=== PATIENT | male | born 1985 | race African-American/Black ===

== ENCOUNTER 2018-05-30 08:02 | Emergency (ER) | payer OTHER ==
[~2018-05-30] VITALS: Ht 182.9 cm; Wt 140.0 kg
[~2018-05-30 08:02] MED LIST: ADDERALL XR20 MG PO; ADDERALL20 MG PO; AMLODIPINE BESY10 MG PO; CELEXA20 MG PO; CIPROFLOXACN500 MG PO; CITALOPRAM40 MG PO; GABAPENTIN300 MG PO; PRILOSEC20 MG PO; RISPERIDONE2 MG PO
[2018-05-30 09:24] LABS: HEMATOCRIT 41.9 % (39.0-50.0); HEMOGLOBIN 13.6 g/dl (14.0-18.0); IMMATURE GRANULOCYTES 0.8 % (0.0-5.0); MEAN CELL VOLUME 84.8 fL CALC (80.0-100.0); MEAN CORPUSCULAR HGB 27.5 pG CALC (26.0-32.0); MEAN CORPUSCULAR HGB CONC 32.5 g/L CALC (32.0-36.0); NEUT# 13.2 thou/uL (1.82-7.42); RED BLOOD COUNT 4.94 mill/uL (4.70-6.10); RED CELL DISTRI WIDTH 14.3 % (11.5-15.5)
[2018-05-30 09:32] LABS: ALBUMIN 4.6 g/dL (3.2-5.0); ALKALINE PHOSPHATASE 56 u/l (38-126); ANION GAP 17 (6-22 (CALC)); BILIRUBIN, TOTAL 0.9 mg/dL (0.0-1.4); BUN 13 mg/dL (9-20); BUN/CREATININE RATIO 11 (12-20 (CALC)); CARBON DIOXIDE 23 mmol/l (22-30); CHLORIDE 102 mmol/l (95-108); CREATININE 1.2 mg/dL (0.7-1.3); GFR > 60 ML/MIN (>=60 (CALC)); GFR FOR AFR.AMER. > 60 ML/MIN (>=60 (CALC)); MAGNESIUM 2.1 mg/dL (1.6-2.3); POTASSIUM 3.8 mmol/l (3.5-5.1); SGOT/AST 36 u/l (17-59); SODIUM 138 mmol/l (137-146); TOTAL PROTEIN 7.8 g/dL (6.3-8.2)
[2018-05-30 09:33] LABS: ETHYL ALCOHOL 0 mg/dl (0-30)
[2018-05-30 10:15] LABS: URINE BILIRUBIN - DIPSTICK NEGATIVE (NEGATIVE); URINE BLOOD DIPSTICK SMALL (NEGATIVE); URINE COLOR YELLOW; URINE GLUCOSE - DIPSTICK NEGATIVE (NEGATIVE); URINE KETONE NEGATIVE (NEGATIVE); URINE LEUK ESTERASE NEGATIVE (NEGATIVE); URINE NITRITE - DIPSTICK NEGATIVE (Negative); URINE PROTEIN - DIPSTICK NEGATIVE (NEG-TRACE); URINE UROBILINOGEN - DIPSTICK 0.2 E.U./dL (0.2)
[2018-05-30 10:16] LABS: URINE CLARITY CLEAR
[2018-05-30 10:19] LABS: BARBITURATES NEGATIVE (NEGATIVE); COCAINE POSITIVE (NEGATIVE); METHADONE NEGATIVE (NEGATIVE); TETRAHYDROCANNABIONOL POSITIVE (NEGATIVE); TRICYLIC ANTIDEPRESSANTS NEGATIVE (NEGATIVE)
[2018-05-30 10:20] LABS: OXCYCODONE NEGATIVE (NEGATIVE)
[2018-05-30 10:24] LABS: URINE RBC 0-2 RBC/hpf (0-5); URINE WBC 0-2 WBC/hpf (0-5)
[2018-05-30 10:41] VITALS: BP 141/73
== END 2018-05-30 10:55 | disposition home or self-care (01) ==
LOC: EDBD 08:02 → ED 08:02
PROVIDERS: Family Medicine
DX: F14.10 Cocaine abuse, uncomplicated (principal); F12.10 Cannabis abuse, uncomplicated; R00.0 Tachycardia, unspecified; F17.210 Nicotine dependence, cigarettes, uncomplicated; R45.1 Restlessness and agitation

== ENCOUNTER 2018-05-31 17:57 | Emergency (ER) | payer OTHER ==
[~2018-05-31] VITALS: Ht 182.9 cm; Wt 150.0 kg
[2018-05-31 18:32] LABS: URINE BILIRUBIN - DIPSTICK NEGATIVE (NEGATIVE); URINE BLOOD DIPSTICK MODERATE (NEGATIVE); URINE COLOR YELLOW; URINE GLUCOSE - DIPSTICK NEGATIVE (NEGATIVE); URINE KETONE 15 mg/dL (NEGATIVE); URINE LEUK ESTERASE NEGATIVE (NEGATIVE); URINE NITRITE - DIPSTICK NEGATIVE (Negative); URINE PROTEIN - DIPSTICK 30 mg/dL (NEG-TRACE); URINE SPECIFIC GRAVITY >=1.030; URINE UROBILINOGEN - DIPSTICK 0.2 E.U./dL (0.2)
[2018-05-31 18:34] LABS: HEMATOCRIT 43.4 % (39.0-50.0); HEMOGLOBIN 13.6 g/dl (14.0-18.0); MEAN CELL VOLUME 88.6 fL CALC (80.0-100.0); MEAN CORPUSCULAR HGB 27.8 pG CALC (26.0-32.0); MEAN CORPUSCULAR HGB CONC 31.3 g/L CALC (32.0-36.0); NEUT# 11.02 thou/uL (1.82-7.42); RED BLOOD COUNT 4.9 mill/uL (4.70-6.10); RED CELL DISTRI WIDTH 14.3 % (11.5-15.5)
[2018-05-31 18:36] LABS: BARBITURATES NEGATIVE (NEGATIVE); COCAINE POSITIVE (NEGATIVE); METHADONE NEGATIVE (NEGATIVE); TETRAHYDROCANNABIONOL POSITIVE (NEGATIVE); TRICYLIC ANTIDEPRESSANTS NEGATIVE (NEGATIVE)
[2018-05-31 18:37] LABS: OXCYCODONE NEGATIVE (NEGATIVE)
[2018-05-31 18:42] LABS: ALBUMIN 4.7 g/dL (3.2-5.0); ALKALINE PHOSPHATASE 79 u/l (38-126); BILIRUBIN, TOTAL 0.5 mg/dL (0.0-1.4); BUN 21 mg/dL (9-20); CHLORIDE 104 mmol/l (95-108); SODIUM 143 mmol/l (137-146); TOTAL PROTEIN 7.9 g/dL (6.3-8.2)
[2018-05-31 18:43] LABS: URINE CLARITY CLEAR
[2018-05-31 18:48] LABS: IMMATURE GRANULOCYTES 17.6 % (0.0-5.0)
[2018-05-31 18:52] LABS: ANION GAP 31 (6-22 (CALC)); BUN/CREATININE RATIO 9 (12-20 (CALC)); CARBON DIOXIDE 13 mmol/l (22-30); CREATININE 2.4 mg/dL (0.7-1.3); ETHYL ALCOHOL 0 mg/dl (0-30); GFR 32 ML/MIN (>=60 (CALC)); GFR FOR AFR.AMER. 38 ML/MIN (>=60 (CALC)); POTASSIUM 5.2 mmol/l (3.5-5.1); SGOT/AST 109 u/l (17-59)
[2018-05-31 19:20] VITALS: BP 130/63
== END 2018-05-31 19:20 | disposition short-term general hospital (02) ==
LOC: ED 17:57
PROVIDERS: Emergency Medicine
DX: T40.5X1A Poisoning by cocaine, accidental (unintentional), initial encounter (principal); T40.7X1A Poisoning by cannabis (derivatives), accidental (unintentional), initial encounter; R41.82 Altered mental status, unspecified; R50.9 Fever, unspecified; J96.90 Respiratory failure, unspecified, unspecified whether with hypoxia or hypercapnia; R00.0 Tachycardia, unspecified; I10 Essential (primary) hypertension

== ENCOUNTER 2018-06-25 17:39 | Emergency (ER) | payer OTHER | END 2018-06-25 18:09 | disposition left against medical advice (07) | DRG 951 | LOC: ED 17:39 → LWOBS 18:09 | DX: Z91.19 Patient's noncompliance with other medical treatment and regimen (principal) ==

== ENCOUNTER 2018-06-28 15:55 | Emergency (ER) | payer OTHER ==
[~2018-06-28] VITALS: Ht 182.9 cm; Wt 145.0 kg
[2018-06-28 16:20] LABS: HEMATOCRIT 30.4 % (39.0-50.0); IMMATURE GRANULOCYTES 0.4 % (0.0-5.0); MEAN CELL VOLUME 90.2 fL CALC (80.0-100.0); MEAN CORPUSCULAR HGB 29.7 pG CALC (26.0-32.0); MEAN CORPUSCULAR HGB CONC 32.9 g/L CALC (32.0-36.0); NEUT# 6.44 thou/uL (1.82-7.42); RED BLOOD COUNT 3.37 mill/uL (4.70-6.10); RED CELL DISTRI WIDTH 15.6 % (11.5-15.5)
[2018-06-28 16:35] LABS: ALBUMIN 4.2 g/dL (3.2-5.0); BILIRUBIN, TOTAL 1.5 mg/dL (0.0-1.4); CREATININE 2.8 mg/dL (0.7-1.3); TOTAL PROTEIN 7.9 g/dL (6.3-8.2)
[2018-06-28] MEDS ORDERED: OMEPRAZOLE20 MG PO (16:36)
[2018-06-28] MEDS ORDERED: ALLOPURINOL100 MG PO (16:36)
[2018-06-28] MEDS ORDERED: PHOSLO667 M1 PO (16:36)
[2018-06-28] MEDS ORDERED: ZOFRAN ODT4 MG PO (16:37)
[2018-06-28] MEDS ORDERED: METOPROL TAR25 MG PO (16:37)
[2018-06-28 16:39] LABS: POTASSIUM 3.7 mmol/l (3.5-5.1)
[2018-06-28 16:46] LABS: URINE BILIRUBIN - DIPSTICK NEGATIVE (NEGATIVE); URINE BLOOD DIPSTICK TRACE-INTACT (NEGATIVE); URINE COLOR YELLOW; URINE GLUCOSE - DIPSTICK NEGATIVE (NEGATIVE); URINE KETONE NEGATIVE (NEGATIVE); URINE LEUK ESTERASE TRACE (NEGATIVE); URINE NITRITE - DIPSTICK NEGATIVE (Negative); URINE PH 8.5 (4.5-8.0); URINE PROTEIN - DIPSTICK 30 mg/dL (NEG-TRACE); URINE SPECIFIC GRAVITY 1.015; URINE UROBILINOGEN - DIPSTICK 0.2 E.U./dL (0.2)
[2018-06-28 16:47] LABS: URINE CLARITY CLEAR
[2018-06-28 16:47] LABS: PROTHROMBIN TIME 10.5 SECONDS (9.0-12.5)
[2018-06-28 16:49] LABS: BARBITURATES NEGATIVE (NEGATIVE); COCAINE NEGATIVE (NEGATIVE); METHADONE NEGATIVE (NEGATIVE); OXCYCODONE NEGATIVE (NEGATIVE); TETRAHYDROCANNABIONOL NEGATIVE (NEGATIVE); TRICYLIC ANTIDEPRESSANTS NEGATIVE (NEGATIVE); URINE RBC 0-2 RBC/hpf (0-5)
[2018-06-28 16:55] VITALS: BP 119/80
[2018-06-28 17:04] LABS: DIGOXIN < 0.4 ng/mL (0.8-2.0)
[2018-06-28 17:17] LABS: MYOGLOBIN 541 ng/mL (0 - 121)
== END 2018-06-28 16:56 | disposition short-term general hospital (02) ==
LOC: ED 15:55
PROVIDERS: Family Medicine
DX: R07.9 Chest pain, unspecified (principal); R94.31 Abnormal electrocardiogram [ECG] [EKG]; I12.0 Hypertensive chronic kidney disease with stage 5 chronic kidney disease or end stage renal disease; N18.6 End stage renal disease; Z99.2 Dependence on renal dialysis; F17.200 Nicotine dependence, unspecified, uncomplicated; Z72.89 Other problems related to lifestyle

== ENCOUNTER 2018-12-14 10:45 | Emergency (ER) | payer OTHER ==
[~2018-12-14] VITALS: Ht 182.9 cm; Wt 119.0 kg
[~2018-12-14 10:45] MED LIST changes: +ALLOPURINOL100 MG PO; +METOPROL TAR25 MG PO; +OMEPRAZOLE20 MG PO; +PHOSLO667 M1 PO; +ZOFRAN ODT4 MG PO
[2018-12-14 11:18] LABS: IMMATURE GRANULOCYTES 0.5 % (0.0-5.0); MEAN CORPUSCULAR HGB 25.6 pG CALC (26.0-32.0); MEAN CORPUSCULAR HGB CONC 31.7 g/L CALC (32.0-36.0); NEUT# 5.65 thou/uL (1.82-7.42); RED BLOOD COUNT 5.16 mill/uL (4.70-6.10)
[2018-12-14 11:24] LABS: HEMATOCRIT 41.6 % (39.0-50.0); HEMOGLOBIN 13.2 g/dl (14.0-18.0); MEAN CELL VOLUME 80.6 fL CALC (80.0-100.0)
[2018-12-14 11:37] LABS: BUN 19 mg/dL (9-20); CHLORIDE 106 mmol/l (95-108); POTASSIUM 4.2 mmol/l (3.5-5.1); SODIUM 139 mmol/l (137-146)
[2018-12-14 11:39] LABS: ANION GAP 13 (6-22 (CALC)); BUN/CREATININE RATIO 17 (12-20 (CALC)); CARBON DIOXIDE 24 mmol/l (22-30); CREATININE 1.1 mg/dL (0.7-1.3); GFR > 60 ML/MIN (>=60 (CALC)); GFR FOR AFR.AMER. > 60 ML/MIN (>=60 (CALC))
[2018-12-14 14:53] VITALS: BP 111/64
== END 2018-12-14 15:50 | disposition short-term general hospital (02) ==
LOC: ED 10:45
PROVIDERS: Family Medicine
DX: I20.0 Unstable angina (principal); I10 Essential (primary) hypertension; F17.210 Nicotine dependence, cigarettes, uncomplicated; E66.9 Obesity, unspecified; F14.10 Cocaine abuse, uncomplicated
CPT/HCPCS: J1644

== ENCOUNTER 2019-05-06 18:19 | Emergency (ER) | payer OTHER ==
[~2019-05-06] VITALS: Ht 182.9 cm; Wt 110.5 kg
[2019-05-06 21:29] LABS: HEMATOCRIT 41.8 % (39.0-50.0); HEMOGLOBIN 13.4 g/dl (14.0-18.0); IMMATURE GRANULOCYTES 0.3 % (0.0-5.0); MEAN CELL VOLUME 85.3 fL CALC (80.0-100.0); MEAN CORPUSCULAR HGB 27.3 pG CALC (26.0-32.0); MEAN CORPUSCULAR HGB CONC 32.1 g/L CALC (32.0-36.0); NEUT# 4.59 thou/uL (1.82-7.42); RED BLOOD COUNT 4.9 mill/uL (4.70-6.10); URINE BILIRUBIN - DIPSTICK NEGATIVE (NEGATIVE); URINE BLOOD DIPSTICK NEGATIVE (NEGATIVE); URINE COLOR YELLOW; URINE GLUCOSE - DIPSTICK NEGATIVE (NEGATIVE); URINE KETONE NEGATIVE (NEGATIVE); URINE LEUK ESTERASE NEGATIVE (NEGATIVE); URINE NITRITE - DIPSTICK NEGATIVE (Negative); URINE PROTEIN - DIPSTICK NEGATIVE (NEG-TRACE); URINE SPECIFIC GRAVITY <=1.005; URINE UROBILINOGEN - DIPSTICK 0.2 E.U./dL (0.2)
[2019-05-06 21:31] LABS: BARBITURATES NEGATIVE (NEGATIVE); COCAINE NEGATIVE (NEGATIVE); METHADONE NEGATIVE (NEGATIVE); OXCYCODONE NEGATIVE (NEGATIVE); TETRAHYDROCANNABIONOL NEGATIVE (NEGATIVE); TRICYLIC ANTIDEPRESSANTS NEGATIVE (NEGATIVE)
[2019-05-06 21:40] LABS: ALBUMIN 4.3 g/dL (3.2-5.0); ALKALINE PHOSPHATASE 73 u/l (38-126); ANION GAP 13 (6-22 (CALC)); BILIRUBIN, TOTAL 0.4 mg/dL (0.0-1.4); BUN 14 mg/dL (9-20); BUN/CREATININE RATIO 13 (12-20 (CALC)); CARBON DIOXIDE 27 mmol/l (22-30); CHLORIDE 104 mmol/l (95-108); CREATININE 1.1 mg/dL (0.7-1.3); GFR > 60 ML/MIN (>=60 (CALC)); GFR FOR AFR.AMER. > 60 ML/MIN (>=60 (CALC)); POTASSIUM 4.3 mmol/l (3.5-5.1); SGOT/AST 18 u/l (17-59); SODIUM 139 mmol/l (137-146); TOTAL PROTEIN 6.9 g/dL (6.3-8.2)
[2019-05-06 21:50] LABS: MYOGLOBIN 36 ng/mL (0 - 121)
[2019-05-06 22:30] VITALS: BP 115/57
== END 2019-05-06 22:30 | disposition home or self-care (01) ==
LOC: ED 18:19
PROVIDERS: Emergency Medicine
DX: R42 Dizziness and giddiness (principal); I10 Essential (primary) hypertension

== ENCOUNTER 2019-05-26 16:06 | Observation (INO) | payer OTHER ==
[~2019-05-26] VITALS: Ht 182.9 cm; Wt 103.0 kg
--- NOTE | 2019-05-26 16:06 | NUR ---
Pt to room # 7 via EMS stretcher for bedside triage. [employer] officers x's 3 at bedside
--- NOTE | 2019-05-26 16:08 | NUR ---
RUPALI IN ROOM 7 RA[facility]AT RED AT BEDSIDE. PATIENT YELLING OUT AND VERBALL ABUSIVE. PATIENT NOT MAKING ANY AGGRESSIVE MOVEMENTS TOWARDS STAFF. ARVIND HAVING VISUAL AND AUDITORY HALLUCINATIONS. TALKING ABOUT A CAT GOING TO EAT HIM AND SOMEONE NEEDING TO GET THE CAT
[2019-05-26 16:44] LABS: HEMATOCRIT 44.4 % (39.0-50.0); HEMOGLOBIN 14.8 g/dl (14.0-18.0); IMMATURE GRANULOCYTES 0.7 % (0.0-5.0); MEAN CELL VOLUME 82.5 fL CALC (80.0-100.0); MEAN CORPUSCULAR HGB 27.5 pG CALC (26.0-32.0); MEAN CORPUSCULAR HGB CONC 33.3 g/L CALC (32.0-36.0); NEUT# 9.87 thou/uL (1.82-7.42); RED BLOOD COUNT 5.38 mill/uL (4.70-6.10); RED CELL DISTRI WIDTH 13.6 % (11.5-15.5)
[2019-05-26 16:49] LABS: URINE BILIRUBIN - DIPSTICK NEGATIVE (NEGATIVE); URINE BLOOD DIPSTICK NEGATIVE (NEGATIVE); URINE COLOR YELLOW; URINE GLUCOSE - DIPSTICK NEGATIVE (NEGATIVE); URINE KETONE 15 mg/dL (NEGATIVE); URINE LEUK ESTERASE NEGATIVE (NEGATIVE); URINE NITRITE - DIPSTICK NEGATIVE (Negative); URINE PH 5.5 (4.5-8.0); URINE PROTEIN - DIPSTICK NEGATIVE (NEG-TRACE); URINE UROBILINOGEN - DIPSTICK 0.2 E.U./dL (0.2)
[2019-05-26 16:51] LABS: BARBITURATES NEGATIVE (NEGATIVE); COCAINE NEGATIVE (NEGATIVE); METHADONE NEGATIVE (NEGATIVE); TETRAHYDROCANNABIONOL NEGATIVE (NEGATIVE); TRICYLIC ANTIDEPRESSANTS NEGATIVE (NEGATIVE)
[2019-05-26 16:52] LABS: OXCYCODONE NEGATIVE (NEGATIVE)
--- NOTE | 2019-05-26 17:03 | NUR ---
PATIENT HAVING AUDITORY AND VISUAL HALLUCINATIONS. PATIENT STATING THAT A CAT IS GOING TO EAT HIM. PATIENT TALKING TO INDIVIDUALS NOT IN THE ROOM
[2019-05-26 17:10] LABS: ANION GAP 19 (6-22 (CALC)); BUN 25 mg/dL (9-20); BUN/CREATININE RATIO 18 (12-20 (CALC)); CARBON DIOXIDE 17 mmol/l (22-30); CHLORIDE 108 mmol/l (95-108); CREATININE 1.3 mg/dL (0.7-1.3); ETHYL ALCOHOL 0 mg/dl (0-30); GFR > 60 ML/MIN (>=60 (CALC)); GFR FOR AFR.AMER. > 60 ML/MIN (>=60 (CALC)); LIPASE 59 u/l (23-300); POTASSIUM 4.7 mmol/l (3.5-5.1); SODIUM 139 mmol/l (137-146)
--- NOTE | 2019-05-26 17:19 | NUR ---
PATIENT REMAINS IN ROOM 7 WITH [facility] RED. PATIETN STILL LOUD AND YELLING OUT ABOUT A CAT THAT IS GOING TO EAT HIM. PATIENT NOT AGGRESSIVE TOWARDS STAFF AND BRIEFLY FOLLOW DIRECTION FOR PATIENTS SAFETY
--- NOTE | 2019-05-26 17:34 | NUR ---
PATIENT STILL YELLING BUT COOPERATIVE BRIEFLY WITH FREQUENT REMINDERS TO TRY AND REMAIN SEATED AND STOP TRYING TO GET OUT OF BED. [place] [employer] AT BEDSIDE
--- NOTE | 2019-05-26 17:41 | NUR ---
PATIENT TRYING TO GET OUT OF BED UNSAFE PATIENT COOPERATIVE BUT PULLING AT MEDICAL EQUIPMENT. [facility] POLICE AT BEDSIDE AND ORDERS PLACED FOR RESTRAINTS BY MD. PATIENT REMAINS ONE TO ONE
--- NOTE | 2019-05-26 18:07 | NUR ---
PATIENT REMAINS ONE TO ONE. PATIENT CALMING DOWN. [place] [employer] REMAINS AT BEDSIDE.
--- NOTE | 2019-05-26 18:23 | NUR ---
FAMILY ARRIVED AT BEDSIDE AND EXPLAINED PATIENTS CURRENT STATE. [place] [employer] REMAINS AT BEDSIDE. PATIENT CALM RESTING WITH EYES CLOSED EVEN RESPIRATIONS AND REMAINING IN RIGID RESTRAINTS. MD NOTIFIED OF PATIENTS CURRENT STATUS
--- NOTE | 2019-05-26 18:26 | NUR ---
[place] HAT AND CELLULAR PHONE GIVEN TO MOTHER. RAHAT RED WITNESSED PATIENT HAVING 20.00 DEJESUS IN [place]LET WHEN GIVEN TO FAMILY
--- NOTE | 2019-05-26 18:53 | NUR ---
REPORT GIVEN TO GA TOBIAS
--- NOTE | 2019-05-26 18:55 | NUR ---
REPORT FROM Km GARNER RN. ASSUMED PT. CARE.
--- NOTE | 2019-05-26 19:13 | NUR ---
PT. RESTING IN BED WITH EYES CLOSED. INTERMITTENTLY AGGITATED AND SHAKING/THRASHING ABOUT THE BED MOANING. SLIGHLY AROUSABLE TO PAINFUL STIMULI AT THIS TIME, BUT NOT VERBALLY RESPONSIVE. RESPS EVEN AND UNLABORED. SPO2 IS 96% ON RA. BP STABLE AT 123/65. HR 80'S SINUS RHYTHM. RESPS 16. REMAINS IN LEATHER RESTRAINTS TO WRISTS. REPOSITIONED UP IN THE BED FOR COMFORT PT. LEGS WERE PREVIOUSLY FOUND HANGING OFF THE END OF THE BED. RESTRAINTS REMOVED AND REPLACED FOR REPOSITIONING. SATISFACTORY POSITIONING OF RESTRAINTS NOTED WITH GOOD DISTIL CAP REFILL. LIGHTS DIMMED FOR COMFORT.
--- NOTE | 2019-05-26 19:30 | NUR ---
BLOOD CULTURES OBTAINED, ASSISTED LAB STAFF AT THIS TIME. PT. REMAINS WITH VISUALIZATION AT ALL TIMES. RESTING WITH EYES CLOSED AND SNORING RESPIRATIONS. WILL CONTINUE TO CLOSELY MONITOR.
--- NOTE | 2019-05-26 19:45 | NUR ---
ER FLUIDS COMPLETED AT THIS TIME. IV NS INITIATED AT 100ML/HR ORDERED. WILL CONTINUE TO CLOSELY MONITOR.
[2019-05-26 20:00] VITALS: BP 106/60
--- NOTE | 2019-05-26 20:00 | NUR ---
ATTEMPT RELEASE OF RESTRAINS WITH DC OF BEHAVIORAL RESTRAINT ORDER BY MD. UPON RELEASE, PATIENT BECAME AGGITATED AGAIN, ATTEMPTING TO PULL AT LINES AND GET OOB. PLACED BACK IN RESTRAINTS AND NEW ORDER RECEIVED FOR NON-BEHAVIORAL RESTRAINTS.
--- NOTE | 2019-05-26 20:01 | NUR ---
BILAT SOFT WRIST RESTRAINTS APPLIED AT THIS TIME. SEE DOCUMENTATION.
[2019-05-26 20:15] VITALS: BP 126/56
--- NOTE | 2019-05-26 20:22 | NUR ---
SPOKE TO RYAN WITH POISON CONTROL. UPDATED ON PATIENT STATUS AND CURRENT LABS. NO NEW ORDERS AT THIS TIME. RYAN STATES THE MODAFINIL (PROVIGIL) CAN CAUSE THE SYMPTOMS THAT WERE SEEEN IN THE PATIENT.
[2019-05-26 20:30] VITALS: BP 119/61
[2019-05-26 20:45] VITALS: BP 106/56
[2019-05-26 21:00] VITALS: BP 108/58
--- NOTE | 2019-05-26 21:03 | NUR ---
SBAR PRINTED TO FLOOR
--- NOTE | 2019-05-26 21:13 | NUR ---
PT. REMAINS RESTING WITH SOFT WRIST RESTRAINTS IN PLACE AND IV FLUIDS INFUSING AT 100/HR ORDERED. INTERMITTENTLY AGGITATED AND THRASHING ABOUT THE BED, BUT CALMS WITHOUT INTERVENTION. WILL CONTINUE TO CLOSELY MONITOR.
[2019-05-26 22:00] VITALS: BP 113/59
--- NOTE | 2019-05-26 22:10 | NUR ---
PT. REMAINS INTERMITTENTLY AWAKE, AND YELLING/AGGITATED. ATTEMPTING TO PULL AT LINES/TUBES. MD MADE AWARE, NEW ORDERS RECEIVED.
--- NOTE | 2019-05-26 22:25 | NUR ---
INTERMITTENTLY AGGITATED AND PULLING AT TUBES LINES. REMAINS RESTRAINED. SEE RESTRAINT DOCUMENTATION.
--- NOTE | 2019-05-26 23:16 | NUR ---
PT. RESTING MORE COMFORTABLY AT THIS TIME. REMAINS RESTRAINED AT THIS TIME. BP/HR REMAIN STABLE. LESS AGGITATED. WILL CONTINUE TO MONITOR FOR ABILITY TO REMOVE RESTRAINTS.
--- NOTE | 2019-05-26 23:37 | NUR ---
REPORT TO MICHELINE RIGGS.
--- NOTE | 2019-05-26 23:50 | NUR ---
PT RECEIVED FROM E.R. VIA STRETCHER ACCOMPANIED BY NURSE. PT DROWSY BUT DOES AROUSE TO VERBAL STIMULI. TOTAL ASSIST INTO BED. REPOSITIONED FOR COMFORT. PT DOES OCC MAON AND GRUNT. MOVES ALL EXT WITHOUT ANY DIFFICULTY. RESP EVEN AND UNLABORED. SKIN WARM AND DRY. NO DISTRESS NOTED. LUNGS CLEAR BILAT. ABD SOFT AND NONDISTENDED WITH BOWEL SOUNDS PRESENT. NO LOWER EXT EDEMA NOTED. PEDAL PULSES PALPATED BILAT. SKIN IS INTACT. IV SITE IS PATENT IN RT A.C WITH NSS AT 100CC/HR. O2 SAT 99% ON R/A. DUE TO PRESENT CONDITION PT UNABLE TO SIGN FALL SHEET AND BELONGING SHEET. ALL BELONGINGS INVENTORIED AND REMOVED FROM THE ROOM. BELONGINGS IN BELONGING BAG AND PLACED IN MED ROOM WITH PT LABEL. MONITOR READING SR HR 70'S. B/P 150/86. PT HAS AN EMPTY PILL BOTTLE OF DEXTROAMP-AMPHETAMINE 10MG. PT DOES HAVE MODAFINIL 10 PILLS. EMPTY PILL BOTTLE AND MODAFINIL PLACED IN PHARMACY MEDICINE INVENTORY BAG WITNESS BY AMY WADE LPN. BAG PLACED IN MED ROOM TO BE PICKED UP BY PHARMACY IN THE MORNING . SITTER AT BEDSIDE. WILL CONTINUE TO CLOSELY MONITOR. FREQUENT ROUNDS MADE. CALL [facility] WITHIN REACH.
--- NOTE | 2019-05-26 23:55 | NUR ---
PT. TAKEN UP TO ICU AT THIS TIME.
[2019-05-27] VITALS (17 sets, daily range): BP systolic 107–161; BP diastolic 62–90
--- NOTE | 2019-05-27 00:10 | NUR ---
MEDICATION INVENTORY ENVELOPE NUMBER #[id number]. RECEIPT PLACED ON INSIDE OF CHART.
--- NOTE | 2019-05-27 01:19 | NUR ---
PT RESTING IN BED WITH EYES CLOSED. SKIN WARM AND DRY. RESP EVEN AND UNLABORED. NO DISTRESS NOTED. B/P 140/62. O2 SAT 97% ON R/A. SOFT BILAT WRIST RESTRAINTS REMAIN ON DUE TO PT PULLING AT MONITOR WIRES AND BEING CONFUSED AND UNABLE TO REDIRECT PT. SITTER AT BEDSIDE. MONITOR READING SR. FREQUENT ROUNDS MADE. CALL [facility] WITHIN REACH.
--- NOTE | 2019-05-27 02:30 | NUR ---
PT RESTING IN BED WITH EYES CLOSED. PT FREQUENTLY MOANS AND THRASHES AROUND THE BED. BILAT SOFT WRIST RESTRAINTS ON. RESP EVEN AND UNLABORED. NO DISTRESS NOTED. SITTER AT BEDSIDE. FREQUENT ROUNDS MADE. CALL [facility] WITHIN REACH.
--- NOTE | 2019-05-27 04:00 | NUR ---
PT RESTING IN BED WITH EYES CLOSED. ASSESSMENT UNCHANGED. VSS B/P 129/66. SR HR 80'S. O2 SAT 99% ON RA. IV SITE PATENT NSS AT 100CC/HR. PT DOES OCC THRASH AROUND IN THE BED. PT DOES AROUSE TO VERBAL STIMULI ONLY TO FALL BACK TO SLEEP. UNABLE TO REDIRECT PT. SOFT BILAT WRIST RESTRAINTS REMAIN ON. SITTER AT BEDSIDE. WILL CONTINUE TO CLOSELY MONITOR. FREQUENT ROUNDS MADE . CALL [facility] WITHIN REACH.
--- NOTE | 2019-05-27 05:59 | NUR ---
PT WOKE. PT ANSWERS APPROPRIATELY BUT IS VERY DROWSY. PT STATES HE DOES NOT HAVE TO URINATE AT THIS TIME. PT DENIES ANY DISCOMFORT. PT ATTEMPTING TO PULL AT WIRES. REPOSITIONED FOR COMFORT. VSS. TEMP 96.4. RESP EVEN AND UNLABORED. MONITOR SR. SOFT BILAT WRIST RESTRAINTS REMAIN IN PLACE. SITTER AT BEDSIDE. FREQUENT ROUNDS MADE. CALL [facility] WITHIN REACH.
--- NOTE | 2019-05-27 06:11 | NUR ---
CALL RECEIVED FROM CESIA JACOBS WITH POISON CONTROL. UPDATED ON PTS ASSESSMENT AND GIVEN LAST SET OF VITALS. WILL CALL LATER TO FOLLOW UP ON HOW PT IS DOING.
--- NOTE | 2019-05-27 07:23 | NUR ---
PT SLEEPING IN BED. SITTER @BEDSIDE. WILL CONTINUE TO MONITOR.
--- NOTE | 2019-05-27 08:13 | NUR ---
PT AWAKE, TALKING ON THE PHONE.
--- NOTE | 2019-05-27 08:22 | NUR ---
HYUN PENNY, @BEDSIDE ASSESSING PT. PTS STORY CHANGING FREQUENTLY BUT KEEPS SAYING HE TOOK "MAGIC". STATES HE ONLY TOOK 25 "PILLOWGRAMS" OF ADDERALL EVERY DAY & WASTED THE REST. PT DEVELOPING DIFFERENT ACCENTS HE SPEAKS. PT STATES HE CALLED THE POLICE BC HIS FAMILY WAS MISSING. PT CONTINUES TO TALK TO HIMSELF. SITTER REMAINS IN BED.
--- NOTE | 2019-05-27 10:26 | NUR ---
PT LAYING IN BED, ASKED FOR ALL THE LIGHTS TO BE TURNED ON. PT NOW STARING AT THE LIGHT ABOVE BED, FIXATED. PT PRETENDING TO CHEW GUM. AND GYRATING PELVIS. SITTER REMAINS AT BEDSIDE.
--- NOTE | 2019-05-27 11:27 | NUR ---
DR BALES & HYUN PENNY @BEDSIDE FOR ASSESSMENT. PT EDUCATED ON INDICATION FOR EASTMAN ACT. DIET ORDERED FOR LUNCH.
--- NOTE | 2019-05-27 12:44 | NUR ---
RIGHT WRIST RELEASED A TEST WHILE FEEDING SELF LUNCH. PT SPEAKING HARSH WORDS, CALLING HIMSELF A NIGGER AND STATING THE POLICE ARE JUST GOING TO HAVE TO TAKE HIM TO HALF-WAY.
--- NOTE | 2019-05-27 14:28 | NUR ---
ATTEMPTED TO COMPLETE MED RECONCILIATION BUT PATIENT WAS NOT ALERT OR ORIENTED. HE IS EASTMAN ACTED SO UNABLE TO SPEAK WITH PATIENT.
--- NOTE | 2019-05-27 14:43 | NUR ---
PT SLEEPING IN BED, APPEARS RESTFUL. NO S/S OF DISTRESS. SITTER @BEDSIDE. WILL CONTINUE TO MONITOR.
--- NOTE | 2019-05-27 17:22 | NUR ---
DINNER TRAY LEFT AT BEDSIDE. PT STILL SLEEPING. SITTER STILL AT BEDSIDE. NO S/S OF DISTRESS AT THIS TIME. VSS. WILL CONTINUE TO MONITOR.
--- NOTE | 2019-05-27 18:32 | NUR ---
PT WAKING UP, VERY LOUDLY. GIVEN DINNER TRAY. NO COMPLAINTS/CONCERNS AT THIS TIME. SITTER REMAINS AT BEDSIDE.
--- NOTE | 2019-05-27 18:45 | NUR ---
REPORT FROM Km PHAN RN. ASSUMED PT. CARE.
--- NOTE | 2019-05-27 19:05 | NUR ---
PT. FOUND WITH BILAT WRIST RESTRAINTS ON HIS WRISTS, BUT NOT TIED AT THIS TIME. WRIST RESTRAINTS REMOVED COMPLETELY AT THIS TIME. WILL TRY WITHOUT AND PT. INFORMED THAT IF HE STARTS TO ACT OUT, MAY NEED TO BE RERESTRAINED IF THE PHYSICIAN ORDERS SUCH.
--- NOTE | 2019-05-27 19:15 | NUR ---
PT. FOUND AWAKE, ALERT, ORIENTED X 3. SKIN WARM AND DRY. AFEBRILE. BP/HR STABLE. CALL LIGHT WITHIN REACH. MAE. LUNA. PUPILS 4MM. SITTER AT BEDSIDE AT THIS TIME. RESPS EVEN AND UNLABORED. DENIES COMPLAINTS OF PAIN OR NEED. REPORTS LAST BM WAS YESTERDAY. IV FLUIDS INFUSING AT 100 ML/HR ORDERED. BOWEL SOUNDS ACTIVE. NO EDEMA NOTED. DISTIL PULSES INTACT. NO DISTRESS.
--- NOTE | 2019-05-27 19:35 | NUR ---
PT. PROVIDED WITH MULTIPLE ICE CREAM, PUDDING, MILA CRACKERS AND JELLO PER HIS REQUEST. UPDATED ON PLAN OF CARE AND LIKELY MEDICAL RELEASE IN THE MORNING TO GO TO PSYCH FACILITY. PT. REPORTS NO OTHER DISTRESS OR NEED AT THIS TIME.
--- NOTE | 2019-05-27 20:30 | NUR ---
PT. PROVIDED WITH TOWEL AND WASH CLOTH. WASHED HIMSELF UP AT THIS TIME. IV FLUIDS CONTINUE TO INFUSE ORDERED. CALL LIGHT REMAINS WITHIN REACH. WILL CONTINUE TO ASSESS. SITTER REMAINS AT BEDSIDE AT THIS TIME.
--- NOTE | 2019-05-27 21:39 | NUR ---
SITTER REMAINS AT BEDSIDE AT THIS TIME. PT. IN NO DISTRESS. RESPS REMAIN EVEN AND UNLABORED. PT. INTERMITTENTLY AGGITATED CURSING. ENCOURAGED TO CONTINUE TO RELAX.
--- NOTE | 2019-05-27 22:14 | NUR ---
PT. REMAINS AWAKE, ALERT, ORIENTED AND INTERMITTENTLY AGGITATED. SITTER REMAINS AT BEDSIDE. DENIES COMPLAINTS OR NEEDS AT THIS TIME.
--- NOTE | 2019-05-27 23:09 | NUR ---
PT. ASSISTED TO AND FROM RESTROOM. PT. WITH LARGE BM. PROVIDED WITH WASH CLOTH AND CLEANSING WIPES TO CLEAN HIMSELF. CALL LIGHT REMAINS WITHIN REACH. REMAINS IN NO DISTRESS BUT INTERMITTENTLY AGGITATED.
[2019-05-28] VITALS: BP 114/68
--- NOTE | 2019-05-28 00:42 | NUR ---
PT. FINALLY RESTING WITH EYES CLOSED AND NOT TALKING AT THIS TIME. PT. REMAINS STABLE ON THE MONITOR. BP/HR STABLE. CALL LIGHT REMAINS WITHIN REACH. SITTER REMAINS AT BEDSIDE AT THIS TIME. WILL CONTINUE TO CLOSELY MONITOR.
[2019-05-28 02:00] VITALS: BP 102/52
--- NOTE | 2019-05-28 02:40 | NUR ---
PT. RESTING IN BED WITH EYES CLOSED AND NO DISTRESS. RESPS REMAIN EVEN AND UNLABORED. SKIN WARM AND DRY. IV FLUIDS INFUSING ORDERED. CALL LIGHT REMAINS WITHIN REACH AND SITTER REMAINS AT BEDSIDE AT THIS TIME.
[2019-05-28 04:00] VITALS: BP 116/67
--- NOTE | 2019-05-28 04:35 | NUR ---
LAB AT BEDSIDE AT THIS TIME. PT. REMAINS RESTFUL WITH SITTER AT BEDSIDE AT THIS TIME. BP/HR STABLE. CALL LIGHT REMAINS WITHIN REACH. SKIN REMAINS WARM AND DRY. AFEBRILE.
[2019-05-28 05:04] LABS: HEMATOCRIT 38.6 % (39.0-50.0); IMMATURE GRANULOCYTES 0.4 % (0.0-5.0); MEAN CELL VOLUME 86.2 fL CALC (80.0-100.0); MEAN CORPUSCULAR HGB 27.9 pG CALC (26.0-32.0); MEAN CORPUSCULAR HGB CONC 32.4 g/L CALC (32.0-36.0); NEUT# 7.24 thou/uL (1.82-7.42); RED BLOOD COUNT 4.48 mill/uL (4.70-6.10); RED CELL DISTRI WIDTH 13.7 % (11.5-15.5)
[2019-05-28 05:14] LABS: HEMOGLOBIN 12.5 g/dl (14.0-18.0)
[2019-05-28 05:26] LABS: BUN 18 mg/dL (9-20); BUN/CREATININE RATIO 19 (12-20 (CALC)); CHLORIDE 111 mmol/l (95-108); CREATININE 0.9 mg/dL (0.7-1.3); GFR > 60 ML/MIN (>=60 (CALC)); GFR FOR AFR.AMER. > 60 ML/MIN (>=60 (CALC)); POTASSIUM 4.2 mmol/l (3.5-5.1); SODIUM 140 mmol/l (137-146)
[2019-05-28 05:32] LABS: ANION GAP 11 (6-22 (CALC)); CARBON DIOXIDE 22 mmol/l (22-30)
[2019-05-28 05:59] VITALS: BP 126/71
--- NOTE | 2019-05-28 06:05 | NUR ---
PT. RESTING IN BED IN NO DISTRESS. RESPS REMAIN EVEN AND UNLABORED. SKIN REMAINS WARM AND DRY. IV FLUIDS CONTINUE TO INFUSE WITHOUT SIGNS OF INFILTRATION. CALL LIGHT REMAINS WITHIN REACH. SITTER REMAINS AT BEDSIDE AT THIS TIME.
--- NOTE | 2019-05-28 07:32 | NUR ---
ASSESSMENT IS COMPLETED: IV SITE IS FREE FROM REDNESS OR EDEMA. PT IS ALERT AND ACTING APPROPRIATE. BREATH SOUNDS ARE CLEAR,BILATERALLY, N C/O SOB, HR IS REG, PULSES ARE STRONG X4, ABD IS SOFT WITH ACTIVE BS. SITTER AT BEDSIDE. ABLE TO ANSWER QUESTIONS APPROPRIATELY
[2019-05-28 08:07] VITALS: BP 108/61
[2019-05-28] MEDS ORDERED: TOPROL XL PO (08:36)
--- NOTE | 2019-05-28 09:14 | NUR ---
PT AMBULATED TO THE BATHROOM AT 0830 ABLE TO HAVE A LARGE BM. IV SITE STARTED TO LEAK AND DRESSING WAS CHANGED . RESTARTED IV FLUIDS INFUISNG WELL.
--- NOTE | 2019-05-28 09:15 | NUR ---
PT CONTINUES TO TALK TO HIMSELF. NO DISTRESS NOTED. SITTER AT BEDSIDE.
--- NOTE | 2019-05-28 09:31 | NUR ---
IN TO VISIT WITH PT.
--- NOTE | 2019-05-28 09:54 | NUR ---
IS REQUESTING THAT SECURITY COME TO THE UNIT. PT IS GETTING UPSET WITH DR BALES WANTING TO GO HOME STATED" I HAVE A TO GO TO". PLACED A CALL TO DR. SANCHEZ TO SPEAK WITH DR. BALES.
--- NOTE | 2019-05-28 10:05 | NUR ---
PT'S MOTHER CALLED AND INQUIRED ABOUT WHERE AND WHEN WE WILL BE SENDING THE PT.
--- NOTE | 2019-05-28 10:14 | NUR ---
PT KEEPS TALKING ABOUT HAVING " A DR'S APPOINTMENT TOMORROW" WHILE SPEAKING WITH HIS MOM SHE TOLD ME " HE LIKES TO SAY THAT , ITS NOT TRUE, AND HE NEEDS HELP".
--- NOTE | 2019-05-28 10:32 | NUR ---
SPOKE WITH DR. BALES RE: PT BEING IRATE AND WANTING TO GO. PER MD HE IS MEDICALLY CLEARED. WAITING ON INFORMATION RE: WHEN PT CAN GO
--- NOTE | 2019-05-28 10:35 | NUR ---
IV SITE DISCONTINUED CATHETER STARTED TO LEAK,
--- NOTE | 2019-05-28 10:55 | NUR ---
FAXED ALL PAPERS TO [facility] .
--- NOTE | 2019-05-28 11:03 | NUR ---
SPOKE WITH ALBERT AT [facility] CONTROL THE CHART WAS CLOSED ON 05/27/19. GAVE AN UPDATE RE: VSDorie . NOTE WRITTEN THE CHART IS CLOSED.
[2019-05-28] MEDS ORDERED: SERTRALINE50 MG PO (11:18)
[2019-05-28] MEDS ORDERED: BETIMOL0.51 OU (11:20)
[2019-05-28] MEDS ORDERED: ADDERALL10 MG PO (11:21)
[2019-05-28] MEDS ORDERED: QUETIAPINE FUMA50 MG PO (11:22)
[2019-05-28] MEDS ORDERED: TOPROL XL25 M1 PO (11:22)
--- NOTE | 2019-05-28 11:49 | NUR ---
PT IS RESTING WITH EYES CLOSED.
--- NOTE | 2019-05-28 13:21 | NUR ---
CASE MANAGEMENT CAME IN AND INFORMED THAT [facility] HAS 1 PERSON AHEAD OF HIME WILL ATTEMPT OTHER PLACED TO FIND A PLACE TO SEND
--- NOTE | 2019-05-28 13:44 | NUR ---
NIKOLAI FROM [facility]. INQUIRED ABOUT PT HAVING A RENAL SHUNT AND PORT OFR HEMODYALISIS. WAS EPLAINED BY TRUPTI RN RE: PT NO LONGER HAVING SHUNT OR PORT IN THE LAST 6 MONTHS.
--- NOTE | 2019-05-28 14:01 | NUR ---
QUINTON FROM CASE MANAGEMENT HAS CALLED AND FAXED INFORMATION TO [facility] AND [facility] ESTRADA
--- NOTE | 2019-05-28 14:33 | NUR ---
RECIEVED A CALL FROM YUNIOR ALCANTARA HAS RECIEVED THE FAX SND CHEKING ON THE PAPERWORK. ALSO NIDHI ESTRADA RECEIVED THE PAPER WORK.
--- NOTE | 2019-05-28 15:06 | NUR ---
PT IS RESTING WITH EYES CLOSED, NO DISTRESS NOTED.SITTER REMAINS AT BEDSIDE,
--- NOTE | 2019-05-28 15:25 | NUR ---
[employer] [employer] CALLED AND STATED" WE INITIATED THE EASTMAN ACT ,WAITING FOR THE MEDICAL CLEARANCE."
--- NOTE | 2019-05-28 15:28 | NUR ---
[employer] IS GOING TO COME AND GET PT TO A FACITILY. [facility]SU WITH [employer]
--- NOTE | 2019-05-28 15:42 | NUR ---
PT'S MOTHER CALLED AND INQUIRED ABOUT PT. INFORMED OF [employer] COMING TO TRANSPORT PT TO CSU.
--- NOTE | 2019-05-28 15:52 | NUR ---
[employer] PICKED UP PT AND ALL BELONGINGS WITH MEDICATION INQUIRED ABOUT HIS PHONE , NO PHONE ON THE BELONGINGS SHEET.
== END 2019-05-28 15:50 | disposition short-term general hospital (02) ==
LOC: ED 16:06 → ED-I 17:20 → ED 17:38 → ED-I 17:39 → ICU 23:49
PROVIDERS: Nurse Practitioner Family; ADMIT Internal Medicine; ATTEND Internal Medicine
DX: F20.0 Paranoid schizophrenia (principal); F14.10 Cocaine abuse, uncomplicated; I10 Essential (primary) hypertension; F90.9 Attention-deficit hyperactivity disorder, unspecified type; F41.8 Other specified anxiety disorders; Z78.1 Physical restraint status
CPT/HCPCS: J2060

== ENCOUNTER 2019-07-08 11:44 | Emergency (ER) | payer OTHER ==
[~2019-07-08] VITALS: Ht 182.9 cm; Wt 101.8 kg
[~2019-07-08 11:44] MED LIST changes: +ADDERALL10 MG PO; +BETIMOL0.51 OU; +QUETIAPINE FUMA50 MG PO; +SERTRALINE50 MG PO; +TOPROL XL PO; +TOPROL XL25 M1 PO
[2019-07-08 12:40] VITALS: BP 117/72
== END 2019-07-08 12:40 | disposition home or self-care (01) ==
LOC: ED 11:44
DX: Z04.89 Encounter for examination and observation for other specified reasons (principal); I10 Essential (primary) hypertension

== ENCOUNTER 2020-06-19 14:37 | Emergency (ER) | payer MEDICARE, MEDICAID ==
[~2020-06-19] VITALS: Ht 182.9 cm; Wt 127.3 kg
[2020-06-19] MEDS ORDERED: METOPROL TAR25 MG PO (15:47)
[2020-06-19] MEDS ORDERED: NORVASC5 M1 PO (15:47)
[2020-06-19] MEDS ORDERED: SERTRALINE25 MG PO (15:48)
[2020-06-19] MEDS ORDERED: ADDERALL12.5 MG PO (15:49)
[2020-06-19] MEDS ORDERED: QUETIAPINE FUMA50 M1 PO (15:50)
[2020-06-19 16:26] LABS: HEMATOCRIT 46.7 % (39.0-50.0); HEMOGLOBIN 15.4 g/dl (14.0-18.0); IMMATURE GRANULOCYTES 1.1 % (0.0-5.0); MEAN CELL VOLUME 83.5 fL CALC (80.0-100.0); MEAN CORPUSCULAR HGB 27.5 pG CALC (26.0-32.0); NEUT# 9.39 thou/uL (1.82-7.42); RED BLOOD COUNT 5.59 mill/uL (4.70-6.10); RED CELL DISTRI WIDTH 14.1 % (11.5-15.5)
[2020-06-19 16:42] LABS: ALBUMIN 4.9 g/dL (3.2-5.0); ALKALINE PHOSPHATASE 62 u/l (38-126); ANION GAP 17 (6-22 (CALC)); BILIRUBIN, TOTAL 1.6 mg/dL (0.0-1.4); BUN 27 mg/dL (9-20); BUN/CREATININE RATIO 21 (12-20 (CALC)); CARBON DIOXIDE 15 mmol/l (22-30); CHLORIDE 110 mmol/l (95-108); CREATININE 1.3 mg/dL (0.7-1.3); GFR > 60 ML/MIN (>=60 (CALC)); GFR FOR AFR.AMER. > 60 ML/MIN (>=60 (CALC)); POTASSIUM 3.8 mmol/l (3.5-5.1); SGOT/AST 32 u/l (17-59); SODIUM 138 mmol/l (137-146); TOTAL PROTEIN 8.5 g/dL (6.3-8.2)
[2020-06-19 17:50] VITALS: BP 120/70
== END 2020-06-19 17:50 | disposition home or self-care (01) ==
LOC: ED 14:37
PROVIDERS: Emergency Medicine
DX: R19.5 Other fecal abnormalities (principal); I10 Essential (primary) hypertension; F41.9 Anxiety disorder, unspecified; F14.10 Cocaine abuse, uncomplicated

== ENCOUNTER 2021-04-01 09:21 | Emergency (ER) | payer MEDICARE, MEDICAID ==
[~2021-04-01] VITALS: Ht 182.9 cm; Wt 141.0 kg
[~2021-04-01 09:21] MED LIST changes: +ADDERALL12.5 MG PO; +NORVASC5 M1 PO; +QUETIAPINE FUMA50 M1 PO; +SERTRALINE25 MG PO
[2021-04-01] MEDS ORDERED: AMOX/K CLAV875 M1 PO (13:11)
[2021-04-01 13:30] VITALS: BP 121/76
== END 2021-04-01 13:30 | disposition home or self-care (01) ==
LOC: ED 09:21
DX: S80.871A Other superficial bite, right lower leg, initial encounter (principal); I10 Essential (primary) hypertension; F41.9 Anxiety disorder, unspecified; W54.0XXA Bitten by dog, initial encounter; Y92.410 Unspecified street and highway as the place of occurrence of the external cause

== ENCOUNTER 2021-05-27 09:41 | Emergency (ER) | payer MEDICARE, MEDICAID ==
[~2021-05-27] VITALS: Ht 182.9 cm; Wt 136.0 kg
[~2021-05-27 09:41] MED LIST changes: +AMOX/K CLAV875 M1 PO
[2021-05-27 11:37] LABS: BUN 18 mg/dL (9-20); BUN/CREATININE RATIO 17 (12-20 (CALC)); CHLORIDE 108 mmol/l (95-108); GFR > 60 ML/MIN (>=60 (CALC)); GFR FOR AFR.AMER. > 60 ML/MIN (>=60 (CALC)); SODIUM 142 mmol/l (137-146)
[2021-05-27 11:38] LABS: ANION GAP 13 (6-22 (CALC)); CARBON DIOXIDE 26 mmol/l (22-30); POTASSIUM 4.6 mmol/l (3.5-5.1)
[2021-05-27 11:43] LABS: HEMATOCRIT 45.7 % (39.0-50.0); HEMOGLOBIN 14.3 g/dl (14.0-18.0); IMMATURE GRANULOCYTES 0.5 % (0.0-5.0); MEAN CELL VOLUME 87.5 fL CALC (80.0-100.0); MEAN CORPUSCULAR HGB 27.4 pG CALC (26.0-32.0); MEAN CORPUSCULAR HGB CONC 31.3 g/dL CAL (32.0-36.0); NEUT# 6.58 thou/uL (1.82-7.42); RED BLOOD COUNT 5.22 mill/uL (4.70-6.10); RED CELL DISTRI WIDTH 14.3 % (11.5-15.5)
[2021-05-27 11:52] VITALS: BP 145/88
[2021-05-27 12:07] LABS: TSH, 3RD GENERATION 2.44 uIU/mL (0.47 - 4.68)
[2021-05-27] MEDS ORDERED: VISTARIL 50MG C50 M1 PO (13:30)
== END 2021-05-27 13:52 | disposition home or self-care (01) ==
LOC: ED 09:41
PROVIDERS: Family Medicine
DX: F41.9 Anxiety disorder, unspecified (principal); F32.A Depression, unspecified; I10 Essential (primary) hypertension; F20.0 Paranoid schizophrenia

== ENCOUNTER 2022-01-12 14:02 | Emergency (ER) | payer MEDICARE, OTHER ==
[~2022-01-12] VITALS: Ht 182.9 cm; Wt 136.2 kg
[2022-01-12] VITALS (9 sets, daily range): BP systolic 63–127; BP diastolic 40–66
[~2022-01-12 14:02] MED LIST changes: +VISTARIL 50MG C50 M1 PO
[2022-01-12 14:44] LABS: URINE BILIRUBIN - DIPSTICK NEGATIVE (NEGATIVE); URINE BLOOD DIPSTICK NEGATIVE (NEGATIVE); URINE COLOR YELLOW; URINE GLUCOSE - DIPSTICK NEGATIVE (NEGATIVE); URINE KETONE NEGATIVE (NEGATIVE); URINE LEUK ESTERASE NEGATIVE (NEGATIVE); URINE PROTEIN - DIPSTICK NEGATIVE (NEG-TRACE); URINE SPECIFIC GRAVITY 1.015; URINE UROBILINOGEN - DIPSTICK 0.2 E.U./dL (0.2)
[2022-01-12 14:46] LABS: HEMATOCRIT 44.7 % (39.0-50.0); HEMOGLOBIN 15.1 g/dl (14.0-18.0); IMMATURE GRANULOCYTES 0.7 % (0.0-5.0); MEAN CORPUSCULAR HGB 28.7 pG CALC (26.0-32.0); MEAN CORPUSCULAR HGB CONC 33.8 g/dL CAL (32.0-36.0); NEUT# 5.1 thou/uL (1.82-7.42); RED BLOOD COUNT 5.26 mill/uL (4.70-6.10)
[2022-01-12 14:46] LABS: URINE NITRITE - DIPSTICK NEGATIVE (Negative)
[2022-01-12 15:38] LABS: ALBUMIN 4.5 g/dL (3.2-5.0); CREATININE 1.7 mg/dL (0.7-1.3); TOTAL PROTEIN 7.6 g/dL (6.3-8.2)
[2022-01-12 15:39] LABS: BILIRUBIN, TOTAL 0.2 mg/dL (0.0-1.4)
[2022-01-12 16:17] LABS: TSH, 3RD GENERATION 2.19 uIU/mL (0.47 - 4.68)
== END 2022-01-12 16:47 | disposition home or self-care (01) ==
LOC: ED 14:02
PROVIDERS: Emergency Medicine
DX: F41.9 Anxiety disorder, unspecified (principal); Z20.828 Contact with and (suspected) exposure to other viral communicable diseases; I10 Essential (primary) hypertension

== ENCOUNTER 2024-02-17 14:49 | Emergency (ER) | payer MEDICARE, MEDICAID ==
[~2024-02-17] VITALS: Ht 180.3 cm; Wt 122.7 kg
[2024-02-17] VITALS (11 sets, daily range): BP systolic 68–100; BP diastolic 48–66
[2024-02-17] MEDS ORDERED: KETOROLAC TROMETHAMINE 30 MG/ML SDV IM ONE (15:10)
[2024-02-17] MEDS ORDERED: HYDROcodone 5 MG/Acetaminophen 325 MG/COMBO PO ONE (15:25)
[2024-02-17] MEDS ORDERED: SODIUM CHLORIDE 0.9% 1,000 ML IV ONE (15:35)
[2024-02-17] MEDS ORDERED: HYDROCO/APAP1 TA9 PO (15:53)
== END 2024-02-17 17:10 | disposition home or self-care (01) ==
LOC: ED 14:49
PROC: 2W3RX1Z Immobilization of Left Lower Leg using Splint (ICD-10-PCS; principal; 2024-02-17)
DX: S82.62XA Displaced fracture of lateral malleolus of left fibula, initial encounter for closed fracture (principal); E11.9 Type 2 diabetes mellitus without complications; I10 Essential (primary) hypertension; E78.00 Pure hypercholesterolemia, unspecified; F41.9 Anxiety disorder, unspecified; F20.0 Paranoid schizophrenia; F32.A Depression, unspecified; W18.30XA Fall on same level, unspecified, initial encounter; Y92.009 Unspecified place in unspecified non-institutional (private) residence as the place of occurrence of the external cause